=== PATIENT | male | born 1950 | race Caucasian/White ===

== ENCOUNTER 2018-02-05 18:34 | Emergency (ER) | payer MEDICARE, OTHER ==
--- NOTE | 2018-02-05 19:41 | UC ---
Skin Complaint HPI - HPI Summary HPI Summary: 67 y/o male presents to the urgent care c/o tick bite on his upper left thigh he noticed this afternoon. His removed tick and since he is in blood thinners he was bleeding for a few minutes. Pt brought tick w/ him which is engorged. Pt states this is the first time he has a tick bite. He was working in [employer] removing some branches. Pt denies fever, pain, joint pain, abdominal pain, N/V/D - History of Current Complaint Time Seen by Provider: 02/05/18 19:37 Stated Complaint: TICK BITE Hx Obtained From: Patient Onset/Duration: Sudden Onset, Lasting Hours - 6hrs, Resolved Skin Exposure Onset/Duration: Hours Ago Timing: Constant Onset Severity: Mild Current Severity: Mild Pain Intensity: 0 Pain Scale Used: 0-10 Numeric Location: Discrete - left upper medial thigh Character: Pruritus, Redness Aggravating Factor(s): Touch Alleviating Factor(s): Nothing Associated Signs & Symptoms: Positive: Rash Related History: Possible Reaction to: Insect - Allergy/Home Medications Allergies/Adverse Reactions: Allergies Allergy/AdvReac Type Severity Reaction Status Date / Time No Known Allergies Allergy Verified 02/05/18 19:35 Home Medications: Home Medications Amlodipine Besylate [Norvasc] 5 mg PO DAILY 02/05/18 [History Confirmed 02/05/18 ] Aspirin [Adult Aspirin] 81 mg PO DAILY 02/05/18 [History Confirmed 02/05/18] Atorvastatin* [Lipitor 10 MG*] 10 mg PO DAILY 02/05/18 [History Confirmed ] Finasteride [Proscar] 5 mg PO BEDTIME 02/05/18 [History Confirmed 02/05/18] Losartan Potassium 100 mg PO DAILY 02/05/18 [History Confirmed 02/05/18] Metoprolol Succinate 25 mg PO DAILY 02/05/18 [History Confirmed 02/05/18] Mometasone Furoate 17 gm NS BEDTIME 02/05/18 [History Confirmed 02/05/18] Nitroglycerin TAB 0.4 MG* 0.4 mg SL . NEEDED PRN 02/05/18 [History Confirmed 02/05/18] Tamsulosin CAP* [Flomax CAP*] 0.4 mg PO BEDTIME 02/05/18 [History Confirmed ] metFORMIN* [Glucophage 500 MG TAB *] 500 mg PO DAILY 02/05/18 [History Confirmed 02/05/18] raNITIdine HCl [Ranitidine HCl] 150 mg PO BID 02/05/18 [History Confirmed ] Review of Systems Constitutional: Negative Skin: Rash - tick bite on the left upper thigh Eyes: Negative ENT: Negative Respiratory: Negative Cardiovascular: Negative Gastrointestinal: Negative Genitourinary: Negative Motor: Negative Neurovascular: Negative Musculoskeletal: Negative Neurological: Negative Psychological: Negative Is Patient Immunocompromised?: No All Other Systems Reviewed And Are Negative: Yes PMH/Surg Hx/FS Hx/Imm Hx Previously Healthy: Yes Endocrine History: Dyslipidemia Cardiovascular History: Hypertension, Deep Vein Thrombosis GI/ History: Gastroesophageal Reflux Other GI/ History: BPH Cancer History: Colorectal Cancer - Surgical History Surgical History: Yes Surgery Procedure, Year, and Place: APPY. TONSILECTOMY. TEETH - Family History Known Family History: Positive: Hypertension - Social History Occupation: Retired Lives: With Family Substance Use Type: None Physical Exam - Summary Physical Exam Summary: Vital Signs Reviewed: Yes General: well developed, well nourished male sitting in the examining table w/o any apparent distress. Eyes: Positive: Conjunctiva Clear - PERRLA, EOMI ENT: Positive: Normal ENT inspection, Hearing grossly normal, Pharynx normal, TMs normal Neck: Positive: Supple, Nontender, No Lymphadenopathy Respiratory: Positive: Chest nontender, Lungs clear, Normal breath sounds Cardiovascular: Positive: RRR, No Murmur, Pulses Normal Abdomen Description: Positive: Nontender, No Organomegaly, Soft. Negative: CVA Tenderness (R), CVA Tenderness (L) Bowel Sounds: Positive: Present Musculoskeletal: Positive: Strength Intact, ROM Intact, No Edema Neurological Exam: Normal Psychological Exam: Normal Skin: Positive: rashes - Proximal medial aspect of Left upper thigh with tick bite with surrounding erythema, non tender to palpation. tick no longer present , no swelling or drainage observed. Triage Information Reviewed: Yes Course/Dx - Course Course Of Treatment: 67 y/o male presents to the urgent care c/o tick bite on his upper left thigh he noticed this afternoon. His removed tick and since he is in blood thinners he was bleeding for a few minutes. Pt brought tick w/ him which is engorged. Pt states this is the first time he has a tick bite. He was working in [employer] removing some branches. Pt denies fever , pain, joint pain, abdominal pain, N/V/D. Hx obtained. Pt w/Proximal medial aspect of Left upper thigh with tick bite with surrounding erythema, non tender to palpation. tick no longer present, no swelling or drainage observed on examination.Antibiotic prophylaxis with Doxycycline given to the patient to prevent lyme Disease.. Pt tolerated well medication. Pt advised to observe the area for the development or Erythema Migrans for upto 30 days following exposure. Advised if he develops fever or erythema Migrans to return to the clinic or PCP for further treatment. Pt's BP is elevated today advised to decrease salt in diet, monitor BP and f/u with PCP for further management. Pt understood and agreed with plan of care. - Differential Diagnoses - Skin Complaint Differential Diagnoses: Abscess, Cellulitis, Local Allergic Reaction, MRSA, Tick Born Illness, Urticaria - Diagnoses Provider Diagnoses: 1- Tick bite on the left thigh. 2- Uncontrolled HTN Discharge - Sign-Out/Discharge Documenting (check all that apply): Discharge/Admit/Transfer - D/C home - Discharge Plan Condition: Stable Disposition: HOME Prescriptions: Bacitracin OINTMENT* 1 applic TOPICAL BID #1 tube Patient Education Materials: Tick Bite (ED), Low-Sodium Diet (ED) Referrals: Raheel Plata MD [Primary Care Provider] - 2 Weeks Nathen BAUMAN,Rolando French [Medical Doctor] - If Needed Additional Instructions: 1- Please observe the area for the development or Erythema Migrans for upto 30 days following exposure. Components of the tick saliva can cause transient erythema that should not be confused with Erythema Migrans. If you develop the bull's eye rash, fever, joint pains please return to the urgent care or f/u with your PCP for further management. 2-Antibiotic prophylaxis with Doxycycline was given to you today to prevent lyme Disease. Lyme serology can be drawn in 2 weeks with your PCP to r/o Lyme disease since there is probability of negative results at early exposure. 3-Apply Bacitracin oint as directed over the affected area around tick bite 4-Your BP is elevated today. please decrease salt in your diet, monitor BP and if it continues to be elevated please f/u with your PCP for further management - Billing Disposition and Condition Condition: STABLE Disposition: HOME
[2018-02-05 19:56] VITALS: BP 153/90
[2018-02-05] MEDS ORDERED: DOXYcycline CAP(*) 100 MG PO ONE (20:14)
== END 2018-02-05 20:27 | disposition home or self-care (01) ==
LOC: UCCORT 18:34
DX: S70.362A Insect bite (nonvenomous), left thigh, initial encounter (principal); W57.XXXA Bitten or stung by nonvenomous insect and other nonvenomous arthropods, initial encounter; Y93.H9 Activity, other involving exterior property and land maintenance, building and construction; Y92.008 Other place in unspecified non-institutional (private) residence as the place of occurrence of the external cause; I10 Essential (primary) hypertension; E78.5 Hyperlipidemia, unspecified; Z86.718 Personal history of other venous thrombosis and embolism; Z79.01 Long term (current) use of anticoagulants; K21.9 Gastro-esophageal reflux disease without esophagitis; N40.0 Benign prostatic hyperplasia without lower urinary tract symptoms; Z85.038 Personal history of other malignant neoplasm of large intestine
CPT/HCPCS: 99202; A9270-GY; G0463